=== PATIENT | female | born 1990 | race Caucasian/White ===

== ENCOUNTER 2017-09-01 07:59 | Outpatient (CLI) | payer OTHER ==
--- NOTE | 2017-09-01 09:48 | Fluoroscopy Report ---
HYSTEROSALPINGOGRAM: History: Infertility. Informed consent was obtained. Standard sterile prep and drape was employed. The catheter tip was subsequently placed within the uterine lumen via cervix. The small balloon on the tip of the catheter was inflated. Retrograde injection opacifies normal appearing uterine lumen. There is prompt filling of the fallopian tubes with prompt bilateral spillage. The uterine lumen demonstrates no evidence for extrinsic compression or intrinsic mass. IMPRESSION: Normal hysterosalpingogram.
== END 2017-09-01 08:00 | disposition home or self-care (01) ==
LOC: FLUORO 07:59
PROVIDERS: ATTEND Family Medicine
DX: N97.9 Female infertility, unspecified (principal)
CPT/HCPCS: 58340; 74740; Q9967